=== PATIENT | female | born 2005 | race Caucasian/White ===

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

== ENCOUNTER 2025-06-15 03:11 | Outpatient (CLI) | payer OTHER, SELFPAY ==
--- NOTE | 2025-06-15 | DI.MRI_ITS ---
Exam(s) MR LUMBAR SPINE WO EXAM: MR LUMBAR SPINE WO CLINICAL HISTORY: MYALGIA,M79.18,LUMBAGO WITH RT SCIATICA,M54.41,RADICULOPATHY,M54.17. TECHNIQUE: Multiplanar multisequence MRI of the Lumbar spine was performed. COMPARISON: None FINDINGS: Bones: The last intervertebral disc space is designated the L5/S1 level for the numbering purpose of this examination. The vertebral body heights are well maintained. Alignment: Unremarkable. The marrow signal characteristics are unremarkable. Cord: The conus tip ends at the T12 level. It is of normal size and signal intensity. T12-L1: No focal disc herniation is present. No central spinal canal stenosis.No neural foraminal stenosis. L1-2: No focal disc herniation is present. No central spinal canal stenosis.No neural foraminal stenosis. L2-3: No focal disc herniation is present. No central spinal canal stenosis.No neural foraminal stenosis. L3-4: No focal disc herniation is present. No central spinal canal stenosis.No neural foraminal stenosis. L4-5: No focal disc herniation is present. No central spinal canal stenosis.No neural foraminal stenosis. L5-S1: No focal disc herniation is present. No central spinal canal stenosis.No neural foraminal stenosis. The visualized SI joints and sacrum are unremarkable. Soft tissues: The paraspinal soft tissues are unremarkable. IMPRESSION: No evidence of disc herniation. No evidence of significant spinal stenosis or neuroforaminal narrowing. DATA REPOSITORY:
== END 2025-06-15 03:31 ==
PROVIDERS: Visit Provider Physician Assistant Medical
DX: M79.18 Myalgia, other site (principal); M54.41 Lumbago with sciatica, right side; M54.17 Radiculopathy, lumbosacral region
CPT/HCPCS: 72148